=== PATIENT | female | born 1980 | race Caucasian/White ===

== ENCOUNTER 2017-05-20 10:23 | Emergency (ER) | payer BC ==
[~2017-05-20] VITALS: Ht 154.9 cm; Wt 53.9 kg
[~2017-05-20 10:23] MED LIST: ASPIRIN CHEWABL81 M2 PO; BAYER CHEWABLE81 MG PO; Brethine PO; FLEXERIL10 MG PO; MOTRIN800 MG PO; PREFERA-OB P1 TABLET PO; PROCARDIA10 MG PO; ULTRAM50 MG PO
[2017-05-20 10:57] LABS: CHLORIDE 103 mEq/L (99-109); POTASSIUM 4.1 mEq/L (3.7-5.4); SODIUM 136 mEq/L (136-147)
[2017-05-20 10:58] LABS: HEMATOCRIT 42.3 % (36.0-46.0); MCH 28.5 PG (29.0-34.0); MCHC 32.6 G/DL (30.0-36.0); MCV 87.4 FL (83-99); MEAN PLAT.VOLUME 11.4 uM^3 (9.5-12.4); PLATELET COUNT 216 K/uL (156-360); RBC DIS.WIDTH-CV 12.8 % (11.8-14.6); RBC DIS.WIDTH-SD 41.1 % (39-53); RED BLOOD COUNT 4.84 M/uL (3.80-5.20); WHITE BLOOD COUNT 8.5 K/uL (4.1-10.2)
[2017-05-20 10:59] LABS: GLUCOSE 87 mg/dL (70-99)
[2017-05-20 11:00] LABS: ANION GAP 6 MEQ/L (2-14)
[2017-05-20 11:03] LABS: GFR ESTIMATE (CALCULATED) > 59 mL/min/
[2017-05-20 11:04] LABS: UREA NITROGEN (BUN) 16 mg/dL (9-23)
[2017-05-20] MEDS ORDERED: ULTRAM50 MG PO (12:44)
[2017-05-20 12:54] VITALS: BP 101/62
== END 2017-05-20 12:55 | disposition home or self-care (01) ==
LOC: EME 10:23
DX: R51 Headache (principal); R04.0 Epistaxis; Z86.73 Personal history of transient ischemic attack (TIA), and cerebral infarction without residual deficits; Z79.82 Long term (current) use of aspirin; Z87.891 Personal history of nicotine dependence
CPT/HCPCS: 70450; 80048; 85027; 99281; 99284; J2765; J3030